=== PATIENT | male | born 1955 | race Caucasian/White ===

== ENCOUNTER 2017-09-27 09:11 | Outpatient (CLI) | payer MEDICARE ==
[2017-09-27 09:59] LABS: #Basophils 0.1 thou/uL (0.0-0.2); #Eosinphils 0.3 thou/uL (0.0-0.7); #Monocytes 1.1 thou/uL (0.11-0.59); #Neutrophils 8.5 thou/uL (1.40-6.50); %Basophils 1.2 % (0.0-1.0); %Eosinophils 2.2 % (0.0-10.0); %Lymphocytes 16.9 % (21.0-51.0); %Monocytes 9.1 % (0.0-10.0); %Neutrophils 70.6 % (42.0-75.0); Hemoglobin 13.3 g/dL (14.0-18.0); Mean Corpuscular HGB CONC 31.8 g/dL (32.0-36.0); Mean Corpuscular Hemoglobin 27.4 pg (27.0-31.0); Mean Platelet Volume 6.7 fL (7.4-10.4); Platelet Count 407 thou/uL (130-400); RBC Distribution Width 12.1 % (11.5-14.5); Red Blood Cell (RBC) Count 4.85 mill/uL (4.70-6.10)
[2017-09-27 10:04] LABS: ALT (SGPT) 26 U/L (8-55); AST (SGOT) 14 U/L (5-34); Albumin 3.9 g/dL (3.5-5.0); Alkaline Phosphatase 98 U/L (40-150); Anion Gap 17 mmol/L (10-20); BUN (Urea Nitrogen) 10 mg/dL (8.4-25.7); Bilirubin, Total 0.3 mg/dL (0.2-1.2); Calc. Creatinine Clearance 0 mL/min (70-130); Carbon Dioxide 24 mmol/L (22-29); Chloride 104 mmol/L (98-107); Estimated GFR-MDRD Greater than 90; Globulin 3.2 g/dL (2.4-3.5); Glucose 83 mg/dL (70-105); Potassium 4.5 mmol/L (3.5-5.1); Protein, Total 7.1 g/dL (6.0-8.3); Sodium 140 mmol/L (136-145)
--- NOTE | 2017-09-27 11:57 | RAD ---
CHEST 2 VIEWS: Date: 09/27/17 HISTORY: Acute bronchitis and tobacco use. COMPARISON: None. FINDINGS: There are abnormal peripheral opacities in the right upper lobe with internal lucencies. Remainder of the lungs appear relative clear. Cardiac silhouette and mediastinal contour is within normal limits. Granulomatous right lower lobe. No acute osseous abnormality. IMPRESSION: Abnormal air space opacity right upper lobe with lucency suggesting either necrosis or cavitation. Un derlying mass cannot be excluded. Follow-up CT of the chest is recommended. CODE T. CODE LN. POS: [facility]
[2017-09-27 17:12] LABS: Hemoglobin A1c 5.5 % (4.0-6.0)
== END 2017-09-27 09:12 | disposition home or self-care (01) ==
LOC: MADLABBHPM 09:11
PROVIDERS: ATTEND Family Medicine
DX: J20.9 Acute bronchitis, unspecified (principal); F17.200 Nicotine dependence, unspecified, uncomplicated; R63.4 Abnormal weight loss; R53.83 Other fatigue; R91.8 Other nonspecific abnormal finding of lung field
CPT/HCPCS: 36415; 71046; 80053; 82607; 83036; 84443; 85025

== ENCOUNTER 2017-10-05 08:49 | Outpatient (CLI) | payer MEDICARE ==
[2017-10-05 09:19] LABS: Anion Gap 15 mmol/L (10-20); BUN (Urea Nitrogen) 11 mg/dL (8.4-25.7); Calc. Creatinine Clearance 0 mL/min (70-130); Calcium 9.2 mg/dL (7.8-10.44); Carbon Dioxide 24 mmol/L (22-29); Chloride 103 mmol/L (98-107); Estimated GFR-MDRD Greater than 90; Glucose 111 mg/dL (70-105); Potassium 3.8 mmol/L (3.5-5.1); Sodium 138 mmol/L (136-145)
--- NOTE | 2017-10-05 12:47 | CT ---
CT CHEST WITH CONTRAST ENHANCEMENT: HISTORY: Patient with chronic cough. Tobacco abuse. Unintentional weight loss. COMPARISON: Chest x-ray from 09/27/2017. FINDINGS: There is an area of slightly wedge-shaped consolidation with developing internal cystic change within the right upper lobe. This involves more of the apical and probably some part of the posterior segm ent of the right upper lobe. The areas of lucency have not coalesced but probably represent developi ng cavitation. Some areas of lower attenuation change probably represent necrotic lung tissue. The appearance of this is more suggestive of a pneumonic type process than a neoplasm but would need to b e followed. There are emphysematous lung changes seen. No other infiltrative type process is noted. No evidence of any significant mediastinal adenopathy. There is a slightly enlarged azygous node, but all the other mediastinal and hilar nodes are subcentimeter in size. The visualized liver parenchymal is normal. The visualized portions of the adrenal glands are unrema rkable. IMPRESSION: Area of consolidation in the right upper lobe with what appears to be developing cavitation. I would favor this as an infectious process rather than neoplasm, but it would need to be followed. Given i ts somewhat apical location, considerations for entities such as tuberculosis should be made, in carmela tional to more typical pneumonias. POS: [facility]
== END 2017-10-05 08:50 ==
LOC: MADLABBHPM 08:49
PROVIDERS: ATTEND Family Medicine
DX: R93.8 Abnormal findings on diagnostic imaging of other specified body structures (principal)
CPT/HCPCS: 36415; 71260; 80048

== ENCOUNTER 2018-08-26 09:04 | Outpatient (CLI) | payer MEDICARE ==
--- NOTE | 2018-08-26 10:29 | CT ---
CT Chest W Con: 08/26/2018 9:08 AM CLINICAL INDICATION: Follow-up pulmonary nodule and consolidation with history of hemoptysis and pulm onary cavitary lesion. COMPARISON: CT of the thorax dated October 06, 2015. Procedure: CT of the thorax with IV contrast FINDINGS: Lung and Large Airways: There is moderate to severe scattered centrilobular and paraseptal emphysema. The wedge like area of consolidation within the right upper lobe has decreased in size from the comparison examination now measuring 6.4 x 4 cm whereas on the prior examination the consolidation me asured 8.1 x 6.2 cm. There are areas of bronchiectasis within this region. Pleura: within normal limits. Vessels: within normal limits. Atherosclerotic changes in the aorta and coronary arteries. Heart: normal size. No pericardial effusion. Mediastinum and Luna: within normal limits. Chest Wall and Lower Neck: within normal limits. Upper Abdomen: within normal limits. Bones: There is scattered degenerative and osteoarthritic change. IMPRESSION: 1. Decrease in size in the with a region of consolidation involving the right upper lobe with scatter ed areas of internal air bronchograms and bronchiectasis. Findings can be seen with atypical infectious process such as fungal disease and TB. This also can be seen with chronic consolidative pr ocess such as eosinophilic pneumonia or cryptogenic organizing pneumonia. 2. Stable emphysema Recommendations: Continued CT follow-up is recommended.
[2018-08-26] MEDS ORDERED: Iopamidol 370 76% 100 ML VIAL ONE (10:31)
[2018-08-27 10:56] LABS: Calc. Creatinine Clearance 0 mL/min (70-130)
[2018-08-27 11:03] LABS: Estimated GFR-MDRD Greater than 90
== END 2018-08-26 09:05 | disposition home or self-care (01) ==
LOC: MADCT 09:04
PROVIDERS: ATTEND Family Medicine
DX: J98.4 Other disorders of lung (principal); R04.2 Hemoptysis; J43.9 Emphysema, unspecified
CPT/HCPCS: 36415; 71260; 82565; Q9967

== ENCOUNTER 2021-11-15 11:55 | Outpatient (CLI) | payer MEDICARE | END 2021-11-15 11:56 | disposition home or self-care (01) | LOC: MADLAB 11:55 | PROVIDERS: ATTEND Family Medicine | DX: M47.22 Other spondylosis with radiculopathy, cervical region (principal) | CPT/HCPCS: 72050 ==